=== PATIENT | female | born 1960 | race Caucasian/White ===

== ENCOUNTER 2018-06-04 11:09 | Emergency (ER) | payer OTHER ==
[2018-06-04 11:18] VITALS: BP 162/100
[2018-06-04] MEDS ORDERED: BUFFERED LIDOCAINE 10 ML SYRINGE SUBQ STA (12:15)
[2018-06-04] MEDS ORDERED: TETANUS/DIPHTHERIA/PERTUSSIS 0.5 ML SYRINGE IM ONE (12:15)
--- NOTE | 2018-06-04 12:17 | ED Physician Documentation ---
PD HPI UPPER EXT INJURY - Stated complaint Stated Complaint: L HAND LAC - Chief complaint Chief Complaint: Laceration - History obtained from History obtained from: Patient - History of Present Illness Location: Left (This is a right-handed woman with unknown tetanus status who accidentally stabbed herself between the first and second webspace of the left hand at home just prior to arrival while opening something with a knife.) Review of Systems Constitutional: reports: Reviewed and negative Cardiac: reports: Reviewed and negative Respiratory: reports: Reviewed and negative PD PAST MEDICAL HISTORY - Past Medical History : Kidney stones - Past Surgical History Past Surgical History: Yes - Present Medications Home Medications: Ambulatory Orders Medication Instructions Recorded Confirmed Citalopram Hydrobromide 20 mg PO DAILY 02/01/14 06/04/18 [Citalopram HBr] Alendronate [Fosamax] 70 mg PO ONCE 06/04/18 06/04/18 - Allergies Allergies/Adverse Reactions: Allergies Allergy/AdvReac Type Severity Reaction Status Date / Time Sulfa (Sulfonamide Allergy Unknown Verified 06/04/18 11:17 Antibiotics) - Social History Does the pt smoke?: No Smoking Status: Never smoker Does the pt have substance abuse?: No - POLST Patient has POLST: No PD ED PE NORMAL - Vitals Vital signs reviewed: Yes - General General: Alert and oriented X 3, No acute distress - Extremities Extremities: Other (Right in the middle of the first webspace of the left hand there is a 1.5 cm laceration without distal neurovascular compromise of the first or second digits.) - Neuro Neuro: Alert and oriented X 3, Normal speech Results - Vitals Vitals: Vital Signs - 24 hr 06/04/18 11:16 Temperature 36.2 C L Heart Rate 71 Respiratory 18 Rate Blood Pressure 162/100 H O2 Saturation 99 Oxygen O2 Source Room air Procedures - Laceration (location) L hand Length in cm: 1.5 Wound type: Linear Neurovascular status: Sensory intact, Motor intact, Vascular intact Anesthesia: Lidocaine 1%, With bicarb Wound Preparation: Irrigated copiously NS Skin layer closure: Nylon, Interrupted, Size #-0 - enter number (4-0), Sutures - enter # (3) Other: Patient tolerated well, No complications, Neurovascular intact, Tetanus booster given Complexity: Simple Departure - Departure Disposition: Home, Self Care Clinical Impression: Laceration Condition: Good Record reviewed to determine appropriate education?: Yes Instructions: ED Laceration Hand Comments: Come back for any signs of infection which would include: Redness, swelling, drainage, increased pain, or fevers. Follow-up with your physician in 14 days for suture removal. Your blood pressure was elevated today on check into the emergency department. This does not mean that you have hypertension, it is a common phenomenon to come to the emergency department and have elevated blood pressure. I recommend that you see your primary care physician within the week to have it rechecked when you are feeling better.
== END 2018-06-04 12:44 | disposition home or self-care (01) ==
LOC: ED 11:09
DX: S61.412A Laceration without foreign body of left hand, initial encounter (principal); W26.0XXA Contact with knife, initial encounter; Y92.009 Unspecified place in unspecified non-institutional (private) residence as the place of occurrence of the external cause; R03.0 Elevated blood-pressure reading, without diagnosis of hypertension; Z23 Encounter for immunization
CPT/HCPCS: 12001; 90471; 99282; 99283

== ENCOUNTER 2018-12-21 17:58 | Emergency (ER) | payer OTHER ==
[2018-12-21] MEDS ORDERED: SODIUM CHLORIDE 0.9% 1,000 ML IV ONE (18:49)
[2018-12-21] MEDS ORDERED: ONDANSETRON 4 MG/2 ML VIAL IVP STA (18:49)
[2018-12-21] MEDS ORDERED: KETOROLAC 30 MG/ML VIAL IVP STA (18:50)
[2018-12-21 19:29] LABS: BASOPHILS % (AUTO) 0.2 %; EOSINOPHILS # (AUTO) 0.1 10^3/uL (0.0-0.7); EOSINOPHILS % (AUTO) 0.6 %; HGB - HEMOGLOBIN 12.6 g/dL (12.0-16.0); LYMPHOCYTES # (AUTO) 1.2 10^3/uL (1.5-3.5); MEAN CORPUSCULAR HEMOGLOBIN 29.4 pg (27.0-31.0); MEAN CORPUSCULAR HGB CONC 33.2 g/dL (32.0-36.0); MEAN CORPUSCULAR VOLUME 88.6 fL (81.0-99.0); MEAN PLATELET VOLUME 9.7 fL (7.9-10.8); MONOCYTES # (AUTO) 0.7 10^3/uL (0.0-1.0); MONOCYTES % (AUTO) 8.2 %; NEUTROPHILS # (AUTO) 6.1 10^3/uL (1.5-6.6); NEUTROPHILS % (AUTO) 75.8 %; PLT - PLATELET COUNT 218 10^3/uL (130-450); RED BLOOD COUNT 4.29 10^6/uL (4.20-5.40); RED CELL DISTRIBUTION WIDTH 12.9 % (12.0-15.0); WHITE BLOOD COUNT 8.1 x10^3/uL (4.8-10.8)
[2018-12-21 19:36] LABS: CALCIUM 10.1 mg/dL (8.5-10.3); CREATININE 0.6 mg/dL (0.4-1.0)
[2018-12-21] MEDS ORDERED: CLINDAMYCIN 600 MG/50 ML 50 ML IV ONE (20:55)
--- NOTE | 2018-12-21 20:58 | ED Physician Documentation ---
PD HPI HEENT - Stated complaint Stated Complaint: DENTAL PAIN - Chief complaint Chief Complaint: Abd Pain - History obtained from History obtained from: Patient, Family - History of Present Illness Timing - onset: Today Timing - details: Abrupt onset Location: Tooth Improves: Nothing Associated symptoms: No: Fever, Unable to swallow Similar symptoms before: Diagnosis (Abscess tooth) Recently seen: Other (Seen by the dentist) - Additional information Additional information: This is a 58-year-old whoStarted vomiting this morning. She developed an abscess in her right mandibular molar and was seen by the dentist 2 days ago started on amoxicillin she got up yesterday and it was worse so they added Flagyl. She started vomiting this morning and has not been able to keep anything down since then. She denies any abdominal pain. No diarrhea. She is nauseous still and has a headache. Swelling around the tooth has improved significantly since starting the Flagyl. She does not drink any alcohol. She did not eat anything that she thinks may made her sick. She said no fever but experience some chills. She did take antibiotic around 10 AM prior to the onset of the vomiting. She was originally scheduled to have a root canal done on this tooth today but with the infection they have put the surgery off until 11 January. Review of Systems Unable to obtain: Other (Patient actively vomiting.) Constitutional: reports: Chills. denies: Fever Throat: reports: Dental pain / toothache Respiratory: denies: Dyspnea GI: reports: Nausea, Vomiting. 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 - Present Medications Home Medications: Ambulatory Orders Medication Instructions Recorded Confirmed Citalopram Hydrobromide 20 mg PO DAILY 02/01/14 06/04/18 [Citalopram HBr] Alendronate [Fosamax] 70 mg PO ONCE 06/04/18 06/04/18 Clindamycin HCl [Clindamycin 300MG 300 mg PO Q6H #28 capsule 12/21/18 CAP] Ondansetron Odt [Zofran] 4 mg TL Q6H PRN #10 tablet 12/21/18 - Allergies Allergies/Adverse Reactions: Allergies Allergy/AdvReac Type Severity Reaction Status Date / Time Sulfa (Sulfonamide Allergy Unknown Verified 06/04/18 11:17 Antibiotics) - Social History Does the pt smoke?: No Smoking Status: Never smoker Does the pt drink ETOH?: Yes Does the pt have substance abuse?: No - Immunizations Immunizations are current?: Yes - POLST Patient has POLST: No PD ED PE NORMAL - Vitals Vital signs reviewed: Yes - General General: Alert and oriented X 3, Other (Patient was actively vomiting.) - HEENT HEENT: PERRL, Other (Because membranes are dry. There is swelling to the right mandibular fold. Around the second most posterior mandibular molar there is some evidence of some dried blood. No active drainage.) - Neck Neck: Thyroid normal - Cardiac Cardiac: RRR, No murmur - Respiratory Respiratory: No respiratory distress, Clear bilaterally - Abdomen Abdomen: Normal bowel sounds, Soft, Non tender, Non distended - Neuro Neuro: Alert and oriented X 3, automatic bandsaw tender 2-12 intact, Normal speech - Psych Psych: Normal mood, Normal affect Results - Vitals Vitals: Vital Signs - 24 hr 12/21/18 18:07 Temperature 36.1 C L Heart Rate 76 Respiratory 18 Rate Blood Pressure 172/84 H O2 Saturation 100 Oxygen O2 Source Room air - Labs Labs: Laboratory Tests 12/21/18 12/21/18 19:16 19:16 WBC 8.1 RBC 4.29 Hgb 12.6 Hct 38.0 MCV 88.6 MCH 29.4 MCHC 33.2 RDW 12.9 Plt Count 218 MPV 9.7 Neut # (Auto) 6.1 Lymph # (Auto) 1.2 L Alpine # (Auto) 0.7 Eos # (Auto) 0.1 Baso # (Auto) 0.0 Absolute Nucleated RBC 0.00 Nucleated RBC % 0.0 Sodium 140 Potassium 4.6 Chloride 104 Carbon Dioxide 26 Anion Gap 10.0 BUN 13 Creatinine 0.6 Estimated GFR (MDRD) 103 Glucose 120 H Calcium 10.1 PD MEDICAL DECISION MAKING - ED course Complexity details: reviewed results, re-evaluated patient, d/w patient, d/w family ED course: Patient was given 30 of Toradol IV and Zofran 4 mg IV. She was able to hold down water following that and said that her headache was improved. White blood cell count is normal. The amoxicillin and Flagyl are probably the source of her vomiting after discussion with her working to discontinue both of those and start her on clindamycin. She was given her first dose IV. To be given prescription as well as prescription for Zofran with instructions to follow-up with the dentist. Return if her symptoms are worsening. Departure - Departure Disposition: 01 Home, Self Care Clinical Impression: Dental abscess Vomiting Qualifiers: Vomiting type: unspecified Vomiting Intractability: non-intractable Nausea presence: with nausea Qualified Code(s): R11.2 - Nausea with vomiting, unspecified Condition: Good Instructions: ED Abscess Dental, ED Nausea Vomiting Follow-Up: dentist,your [Other] Prescriptions: Clindamycin HCl [Clindamycin 300MG CAP] 300 mg PO Q6H #28 capsule Ondansetron Odt [Zofran] 4 mg TL Q6H PRN #10 tablet PRN Reason: Nausea / Vomiting Comments: Stop the amoxicillin andStart clindamycin area 4 times a day with food. Give a prescription for Zofran that you can use if needed for nausea or vomiting. Make sure to push lots of fluids. Follow-up with the dentist regarding definitive care of the tooth.
[2018-12-21 21:34] VITALS: BP 164/84
== END 2018-12-21 21:35 | disposition home or self-care (01) ==
LOC: ED 17:58
DX: R11.2 Nausea with vomiting, unspecified (principal); R51 Headache; K04.7 Periapical abscess without sinus
CPT/HCPCS: 36415; 80048; 85025; 96361; 96374; 96375; 99284

== ENCOUNTER 2020-12-04 14:38 | Emergency (ER) | payer OTHER ==
[2020-12-04] MEDS ORDERED: diphenhydrAMINE INJ 50 MG/ML VIAL IVP STA (17:48)
[2020-12-04] MEDS ORDERED: SODIUM CHLORIDE 0.9% 1,000 ML IV STA (17:48)
[2020-12-04] MEDS ORDERED: PROCHLORPERAZINE 5 MG TABLET PO STA (17:48)
--- NOTE | 2020-12-04 17:51 | ED Physician Documentation ---
History of Present Illness - Stated complaint Stated Complaint: HEADACHE, NAUSEA - Chief complaint Chief Complaint: Neuro - Additonal information Additional information: 60-year-old female presents emergency department for evaluation of a headache 5 days duration. She reports going [place] the [place] on [place] and riding the [place]. She states that she is always been able to ride fair rides. She does not recall any event during the fair but when she woke up Tuesday morning she had a posterior occiput headache. Since then it is progressively worsened. She feels a whooshing sound in her brain. There is light and noise sensitivity. She has been able to keep very little down over the last 24 to 48 hours. She states that she has had headaches in the past but not like this. She is not anticoagulated. Does have a history of hypertension, osteoporosis and depression. She appears very uncomfortable. Review of Systems Constitutional: denies: Fever, Chills Eyes: reports: Reviewed and negative Ears: reports: Reviewed and negative Nose: reports: Reviewed and negative Throat: reports: Reviewed and negative Cardiac: reports: Reviewed and negative Respiratory: reports: Reviewed and negative GI: reports: Abdominal Pain. denies: Nausea, Vomiting : reports: Reviewed and negative Skin: reports: Reviewed and negative Musculoskeletal: reports: Reviewed and negative Neurologic: reports: Headache. 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 - Present Medications Home Medications: Ambulatory Orders Medication Instructions Recorded Confirmed Citalopram Hydrobromide 20 mg PO DAILY 02/01/14 06/04/18 [Citalopram HBr] Alendronate [Fosamax] 70 mg PO ONCE 06/04/18 06/04/18 Clindamycin HCl [Clindamycin 300MG 300 mg PO Q6H #28 capsule 12/21/18 CAP] Ondansetron Odt [Zofran] 4 mg TL Q6H PRN #10 tablet 12/21/18 Ondansetron Odt [Zofran] 4 mg TL Q6H PRN #10 tablet 12/04/20 - Allergies Allergies/Adverse Reactions: Allergies Allergy/AdvReac Type Severity Reaction Status Date / Time Sulfa (Sulfonamide Allergy Unknown Verified 12/04/20 15:15 Antibiotics) - Social History Does the pt smoke?: No Smoking Status: Never smoker Does the pt drink ETOH?: Yes Does the pt have substance abuse?: No - Immunizations Immunizations are current?: Yes - POLST Patient has POLST: No PD ED PE EXPANDED - General General: Alert, In Pain - HEENT HEENT: PERRL, EOMI - Eyes Eyes: PERRL - Neck Neck: Supple w/out meningeal sx. No: Adenopathy - Cardiac Cardiac: Regular Rate, Regular Rhythm, Radial strong equal, Cap refill < 2 sec. No: Murmur Present - Respiratory Respiratory: Clear to ausultation khoi. No: Distress - Neuro Neuro: Alert and Oriented X 3, CNII-XII intact, Normal gait, Normal finger nose, Normal speech - GCS Eye Opening: Spontaneous Motor: Obeys Commands Verbal: Oriented Total: 15 Results - Vitals Vitals: Vital Signs - 24 hr 12/04/20 15:05 Temperature 36.5 C Heart Rate 74 Respiratory 14 Rate Blood Pressure 166/88 H O2 Saturation 97 Oxygen O2 Source Room air - Rads (name of study) CT head Radiology: Final report received (No acute findings) PD MEDICAL DECISION MAKING - ED course Complexity details: reviewed results, re-evaluated patient, d/w patient ED course: 60-year-old female presents to the emergency department for evaluation of a headache that began 5 days ago after riding the [employer] a fast fair ride as any falls or trauma and rarely has headaches. She has had uncontrolled vomiting for the last 24 hours. On exam she is tearful secondary to pain. However she has no focal deficits and a normal cerebellar exam. But given her age and the history of the fair ride/headache secondary to that we did proceed to do a CT that did not show any signs of acute intracranial abnormality. Patient was given 1 L of crystalloid followed by Compazine and Benadryl here in the ER with marked improvement in her headache though not fully abated. She was then given Decadron. She will be discharged with prescription for Zofran to help with the nausea at home. She is now tolerating sips of clear liquids. Emergent return precautions were discussed for worsening symptoms. Departure - Departure Disposition: 01 Home, Self Care Clinical Impression: Headache Qualifiers: Headache type: other headache syndrome Qualified Code(s): G44.89 - Other headache syndrome Condition: Stable Record reviewed to determine appropriate education?: Yes Instructions: ED Cephalgia Unspecified Prescriptions: Ondansetron Odt [Zofran] 4 mg TL Q6H PRN #10 tablet PRN Reason: Nausea / Vomiting Comments: Piedad were seen in the ER today for a headache for much of the last week. As we discussed at the bedside your neurological exam was normal. However since the headaches seem to occur after doing a fair ride we did do a CT of the head to make sure there is no bleeding within the head. You the CT was normal. We did give you some IV fluids, Compazine and Benadryl which has improved the headache. We then followed that up with 10 mg of Decadron. This is a steroid that can prevent headaches from reoccurring. I am prescribing some Zofran and nausea medicine that you can take at home for nausea. I encourage you to stay well-hydrated and frequently sips of clear liquids. If at any point you feel that your headache is worsening, you have uncontrolled vomiting fevers slurred speech or weakness in your arms or legs and please return immediately to the ER for a second look. Please discuss this ED visit with your primary care provider.
--- NOTE | 2020-12-04 18:45 | CT Report ---
PROCEDURE: HEAD WO INDICATIONS: persistent headche for 5 days after fair ride TECHNIQUE: Noncontrast 4.5 mm thick angled axial sections acquired from the foramen magnum to the vertex. For r adiation dose reduction, the following was used: automated exposure control, adjustment of mA and/or kV according to patient size. COMPARISON: None. FINDINGS: Image quality: Excellent. CSF spaces: Basal cisterns are patent. No extra-axial fluid collections. Ventricles are normal in size and shape. Brain: No midline shift. No intracranial masses or hemorrhage. Mcdermott-white matter interface is norm al. Skull and face: Calvarium and visualized facial bones are intact, without suspicious lesions. Sinuses: Visualized sinuses and mastoids are clear. IMPRESSION: No acute intracranial abnormality. Reviewed by: Hugo Hathaway MD on 12/04/2020 5:44 PM AKRICK Approved by: Hugo Hathaway MD on 12/04/2020 5:44 PM AKRICK Station ID: [id number]
[2020-12-04] MEDS ORDERED: DEXAMETHASONE 10 MG/ML VIAL PO STA (19:42)
[2020-12-04] MEDS ORDERED: CHERRY SYRUP 10 ML UDC PO ONE (19:42)
[2020-12-04 19:52] VITALS: BP 138/80
== END 2020-12-04 19:51 | disposition home or self-care (01) ==
LOC: ED 14:38
DX: G44.89 Other headache syndrome (principal); I10 Essential (primary) hypertension
CPT/HCPCS: 70450; 96374; 99284; A9270; J1200